=== PATIENT | female | born 1970 | race Caucasian/White ===

== ENCOUNTER 2023-09-03 11:22 | Outpatient (CLI) | payer OTHER, SELFPAY ==
--- NOTE | 2023-09-03 11:30 | CRLHL7_ITS ---
For Patients: As a result of the Century Cures Act, medical imaging exams and procedure reports are released immediately into your electronic medical record. You may view this report before your referring provider. If you have questions, please contact your health care provider. BILATERAL SCREENING MAMMOGRAM WITH COMPUTER-AIDED DETECTION AND TOMOSYNTHESIS TECHNIQUE: CC and MLO views were obtained. These mammographic images have been obtained using full-field digital technique. These mammographic images were interpreted with the benefit of computer-aided detection. Breast tomosynthesis was used in this interpretation. COMPARISON FILM: 08/09/21, 08/11/19, 05/05/18. FINDINGS: There are scattered areas of fibroglandular density. IMPRESSION: There is no radiographic evidence for malignancy. ASSESSMENT: BI-RADS Category 1: Negative RECOMMENDATION: Routine screening mammogram in 1 year. A lay language report of this examination will be provided to the patient. STACY TAVERA M.D. Diagnostic/Nuclear Medicine Radiologist [email or web address] Transcribed: 1:[address]/Dictated by: Stacy Tavera MD @ 09/04/2023 10:08:00 AM (Electronically Signed)
== END 2023-09-03 11:23 | disposition home or self-care (01) ==
LOC: MAMMO 11:23
PROVIDERS: PCP Family Medicine; Visit Provider Emergency Medicine
DX: Z12.31 Encounter for screening mammogram for malignant neoplasm of breast (principal)
CPT/HCPCS: 77063; 77067

== ENCOUNTER 2024-10-05 08:32 | Outpatient (CLI) | payer MEDICARE, OTHER, SELFPAY ==
--- NOTE | 2024-10-05 08:45 | CRLHL7_ITS ---
For Patients: As a result of the Cures Act, medical imaging exams and procedure reports are released immediately into your electronic medical record. You may view this report before your referring provider. If you have questions, please contact your health care provider. BILATERAL SCREENING MAMMOGRAM WITH COMPUTER-AIDED DETECTION AND TOMOSYNTHESIS TECHNIQUE: CC and MLO views were obtained. These mammographic images have been obtained using full-field digital technique. These mammographic images were interpreted with the benefit of computer-aided detection. Breast Tomosynthesis was used in this interpretation. COMPARISON FILM: 09/03/23, 08/09/21, 08/11/19. FINDINGS: There are scattered areas of fibroglandular density IMPRESSION: There is no radiographic evidence for malignancy. ASSESSMENT: BI-RADS Category 1: Negative RECOMMENDATION: Routine screening mammogram in 1 year. A lay language report of this examination will be provided to the patient. Arthur Chandler M.D. Diagnostic Radiologist [email or web address] Transcribed: 2:31 p.mRosie siddiqui/Dictated by: Arthur Chandler MD @ 10/06/2024 10:42:00 AM (Electronically Signed)
== END 2024-10-05 08:33 | disposition home or self-care (01) ==
LOC: MAMMO 08:33
PROVIDERS: PCP Emergency Medicine; Visit Provider Emergency Medicine
DX: Z12.31 Encounter for screening mammogram for malignant neoplasm of breast (principal)
CPT/HCPCS: 77063; 77067

== ENCOUNTER 2025-01-11 08:23 | Outpatient (CLI) | payer MEDICAID, SELFPAY ==
--- NOTE | 2025-01-11 08:45 | CRLHL7_ITS ---
For Patients: As a result of the Century Cures Act, medical imaging exams and procedure reports are released immediately into your electronic medical record. You may view this report before your referring provider. If you have questions, please contact your health care provider. DIGITAL DIAGNOSTIC LEFT MAMMOGRAM USING TOMOSYNTHESIS AND COMPUTER-AIDED DETECTION LEFT BREAST ULTRASOUND CLINICAL HISTORY: LEFT breast lump. COMPARISON: 10/05/24, 09/03/23, 08/09/21. TECHNIQUE: Digital LEFT mammogram in two projections with computer-aided detection. Tomosynthesis was used in this interpretation. Real-time ultrasound imaging of LEFT breast with imaging documentation. Scanning was performed by both the technologist and the radiologist. BREAST COMPOSITION: There are scattered areas of fibroglandular density. FINDINGS: 3D CC/MLO LEFT breast mammogram images submitted. Increased density within the subareolar breast corresponding to the area of concern. No architectural distortion. No suspicious calcifications. No adenopathy. Targeted LEFT breast ultrasound performed in the retroareolar region corresponding to the area of palpable concern. In this location, there is a hypoechoic solid-appearing structure measuring 11 x 8 x 11 millimeters. Increased through-transmission noted. A tract appears to extend to the skin. No internal vascularity. IMPRESSION: Indeterminate LEFT breast retroareolar nodule measuring 11 millimeters with a possible tract extending to the skin suggesting that this is likely chronic inflammation/granulomatous change. RECOMMENDATIONS: Ultrasound-guided core needle biopsy recommended for further evaluation and to exclude malignancy. A lay language report of this examination will be provided to the patient. BI-RADS Category 4: Suspicious Dictated by Arthur Chandler MD @ 01/11/2025 9:25:16 AM jj/Dictated by: Arthur Chandler MD @ 01/11/2025 9:25:00 AM (Electronically Signed)
== END 2025-01-11 08:24 | disposition home or self-care (01) ==
LOC: MAMMO 08:23
PROVIDERS: PCP Emergency Medicine; Visit Provider Emergency Medicine
DX: N63.20 Unspecified lump in the left breast, unspecified quadrant (principal)
CPT/HCPCS: 76642; 77065; G0279

== ENCOUNTER 2025-01-17 09:04 | Outpatient (CLI) | payer MEDICAID, SELFPAY ==
--- NOTE | 2025-01-17 09:15 | CRLHL7_ITS ---
For Patients: As a result of the Century Cures Act, medical imaging exams and procedure reports are released immediately into your electronic medical record. You may view this report before your referring provider. If you have questions, please contact your health care provider. ULTRASOUND-GUIDED BREAST BIOPSY AND POST-BIOPSY DIGITAL MAMMOGRAM FOR BIOPSY MARKER PLACEMENT CLINICAL HISTORY: Indeterminate nodule. COMPARISON STUDIES: 01/11/2025. TECHNIQUE: Real-time ultrasound with image documentation was used for targeting the breast lesion. Core biopsy specimens were obtained using an automated gun with a 16-gauge biopsy needle. Post-biopsy CC and ML digital mammograms were obtained to document position of the biopsy marker. CONSENT and TIME OUT: The procedure, risks, and alternatives were explained to the patient and a consent was signed. [place] Protocol was followed including pre-procedure verification that relevant information/documentation was available, reviewed and properly matched to the patient; consent accurate and complete; and equipment and supplies available. Time Out was conducted just prior to starting procedure to verify the four required elements: patient identity, correct side/site marked (if applicable), procedure, relevant images/results properly labeled and displayed (if applicable). PROCEDURE: The patient was positioned supine on the ultrasound table. The breast was prepped with ChloraPrep. 12 cc of 1 percent lidocaine used for local anesthesia. Core samples were obtained. A sterile metal biopsy clip was placed percutaneously to syed the lesion position within the breast. The specimens were placed in 10% formalin and sent to the pathology department. Pressure was held on the biopsy site until all bleeding subsided. The skin incision was closed with Steri-Strips. An ice pack was positioned over the biopsy site. Post-biopsy instructions were reviewed with the patient, and a written copy was given to her. LATERALITY: LEFT breast. LESION: Hypoechoic solid mass adjacent to the LEFT nipple measuring 11 x 8 x 11 millimeters. SUSPICION FOR MALIGNANCY: Intermediate. NUMBER OF SAMPLES: 6. BIOPSY CLIP SHAPE: HydroMark. PROXIMITY OF CLIP TO TARGET: Within the lesion. IMPRESSION: Ultrasound-guided breast biopsy. When the pathology report is available, an addendum to this report will be made. ACR not applicable Dictated by Arthur Chandler MD @ 01/17/2025 10:45:35 AM jj/Dictated by: Arthur Chandler MD @ 01/17/2025 10:45:00 AM (Electronically Signed)
== END 2025-01-17 09:05 | disposition home or self-care (01) ==
LOC: US 09:05
PROVIDERS: PCP Emergency Medicine; Visit Provider Emergency Medicine
DX: N63.20 Unspecified lump in the left breast, unspecified quadrant (principal); N60.82 Other benign mammary dysplasias of left breast
CPT/HCPCS: 19083; 77065; 88304; A4648; A4649

== ENCOUNTER 2025-06-06 06:18 | Day surgery (SDC) | payer BC, SELFPAY ==
[2025-06-06 06:38] VITALS: BMI 25.2
[2025-06-06 06:48] VITALS: BP 126/89; PULSE 74; RESP 19; TEMP 37; O2SAT 98
[2025-06-06] MEDS: SODIUM CHLORIDE 0.9 % (FLUSH) 10 ML SYRINGE IVF (07:10)
[2025-06-06] MEDS: LACTATED RINGERS 1000 ML 1,000 ML 100 ML IV (07:11)
--- NOTE | 2025-06-06 07:44 | CRLHL7_ITS ---
For Patients: As a result of the Cures Act, medical imaging exams and procedure reports are released immediately into your electronic medical record. You may view this report before your referring provider. If you have questions, please contact your health care provider. LEFT BREAST SPECIMEN RADIOGRAPH CLINICAL HISTORY: Epidermal inclusion cyst excision. COMPARISON: 01/17/2025. FINDINGS: Two specimens are submitted, two views of each specimen. No clip is present in either specimen. IMPRESSION: No clip is present. ACR not applicable Dictated by Arthur Chandler MD @ 06/19/2025 8:47:27 AM jj/Dictated by: Arthur Chandler MD @ 06/19/2025 8:47:00 AM (Electronically Signed)
[2025-06-06] MEDS: LIDOCAINE 1% MDV 10 ML INJECTION (07:52)
[2025-06-06] MEDS: BUPIVACAINE 0.25% 30 ML 5 ML INJECTION (07:52)
--- NOTE | 2025-06-06 07:56 | P.ANES_ITS ---
Anesthesia Charges Start Date/Time Anesthesia Start Date: 06/06/25 Anesthesia Start Time: 07:33 Stop Date/Time Anesthesia Stop Date: 06/06/25 Anesthesia Stop Time: 08:41 Coding CPT Codes CPT Codes: ANESTH SKIN EXT/PER/ATRUNK - 18602 ([id number]) P3 - PATIENT W/SEVERE SYS DISEASE, QK - TRUCK CAR AND BUS CLEANER 2-4 CNCRNT ANES PROC, QX - BORING MACHINE OPERATOR DOUBLE END SVC W/ MD MED DIRECTION
--- NOTE | 2025-06-06 07:56 | W.ANESCHARGE ---
Anesthesia Charges Start Date/Time Anesthesia Start Date: 06/06/25 Anesthesia Start Time: 07:33 Stop Date/Time Anesthesia Stop Date: 06/06/25 Anesthesia Stop Time: 08:41 Coding CPT Codes CPT Codes: ANESTH SKIN EXT/PER/ATRUNK - 84529 ([id number]) P3 - PATIENT W/SEVERE SYS DISEASE, QK - SOFTWARE PACKAGING ENGINEER 2-4 CNCRNT ANES PROC, QX - WIRE PREPARATION WORKER SVC W/ MD MED DIRECTION
--- NOTE | 2025-06-06 08:09 | SUR.OPER ---
PATIENT QUESTIONS ANSWERED SATISFACTORILY PREOPERATIVELY. PATIENT BROUGHT TO OR #1 PER CART. Patient positioned supine on OR #1 bed. The perioperative team supported arms bilaterally on arm boards. Final approval of positioning by surgeon.
--- NOTE | 2025-06-06 08:19 | CRLHL7_ITS ---
For Patients: As a result of the Cures Act, medical imaging exams and procedure reports are released immediately into your electronic medical record. You may view this report before your referring provider. If you have questions, please contact your health care provider. LEFT BREAST SPECIMEN RADIOGRAPH CLINICAL HISTORY: Epidermal inclusion cyst excision. COMPARISON: 01/17/2025. FINDINGS: A specimen is submitted which is viewed in two projections. No clip is present. IMPRESSION: No clip is present. ACR not applicable Dictated by Arthur Chandler MD @ 06/19/2025 8:48:12 AM jj/Dictated by: Arthur Chandler MD @ 06/19/2025 8:48:00 AM (Electronically Signed)
--- NOTE | 2025-06-06 08:37 | P.GSOP_ITS ---
Operative Note Date of procedure: 06/06/25 Pre-op diagnosis: Epidermal inclusion cyst of the breath Post-op diagnosis: Same Type of Procedure: Excision of left breast mass Indications: Patient is a 54-year-old female who presented with a symptomatic inclusion cyst of the left breast. Please see consultation note discussing full workup a p revious breast biopsy. Different treatment options were discussed including surgical excision verses observation. Risks and benefits of operative intervention were discussed at length with the patient. Risks included but was not limited to: Bleeding, infection, risk of damage to surrounding structures, possible need for additional procedures, risk of nipple changes, necrosis of the nipple or cosmetic defects and postoperative complications such as pneumonia, pulmonary emboli or VT. All questions and concerns were addressed with the patient agreeing to proceed. Procedure Description: After discussing the risks and benefits of the procedure, the patient signed informed consent.? The operative site was marked and the patient was brought to the operating room and placed on the operating table in supine position.? Care was taken to pad the patient's pressure points.?? The patient was then given sedation by anesthesia.?? The operative site was then prepped and draped in the usual sterile fashion.? A time-out was then performed. 1% lidocaine with 0.25% Marcaine was used to anesthetize the surgical field. A periareolar incision was made from 6-9 o'clock. Dissection was carried down through subcutaneous tissue into the breast tissue with cautery. The cyst was slightly enlarged and easily palpable. Using sharp dissection with a 15 blade scalpel it was dissected retroareolar. The cyst was entered during dissection with removal of sebum, consistent with an inclusion cyst. The cyst was removed in its entirety and sent to Radiology. There mammographies was performed, but no clip was seen. Some additional tissue was removed medial to the cyst and underneath the healed biopsy site. This was also sent to mammography and again no clip was seen. Suspect that the clip had been within the cyst cavity and was inadvertently removed when the cyst cavity was incised during dissection. No further palpable mass defects were appreciated. The incision was gently irrigated. Hemostasis was assured with cautery and pressure. The incision was closed in layers with interrupted 3 0 Vicryl and running 4-0 Monocryl stitch. Sterile dressings were then applied. ? The patient was then woken and transported to the recovery area in stable condition. ? The patient tolerated the procedure well. Findings: Sebaceous cyst, retroareolar Anesthesia: MAC and local Surgeon: Yolanda Tamayo MD Estimated blood loss (mL): 2 Additional Specimen Information: 1. Left breast mass 2. Re-excision left breast Condition: stable Disposition: same day
--- NOTE | 2025-06-06 08:37 | W.PM.H&PU ---
History & Physical Update History & Physical Update H&P Reviewed and patient assessed: No changes noted
[2025-06-06 08:38] VITALS: BP 128/97; PULSE 66; RESP 16; TEMP 36.4; O2SAT 97
--- NOTE | 2025-06-06 08:41 | P.ANES_ITS ---
Anesthesia Charges Start Date/Time Anesthesia Start Date: 06/06/25 Anesthesia Start Time: 07:33 Stop Date/Time Anesthesia Stop Date: 06/06/25 Anesthesia Stop Time: 08:41 Coding CPT Codes CPT Codes: ANESTH SKIN EXT/PER/ATRUNK - 09390 ([id number]) P3 - PATIENT W/SEVERE SYS DISEASE, QK - DEDENTER 2-4 CNCRNT ANES PROC, QX - GLAZIER HELPER SVC W/ MD MED DIRECTION
--- NOTE | 2025-06-06 08:41 | W.ANESCHARGE ---
Anesthesia Charges Start Date/Time Anesthesia Start Date: 06/06/25 Anesthesia Start Time: 07:33 Stop Date/Time Anesthesia Stop Date: 06/06/25 Anesthesia Stop Time: 08:41 Coding CPT Codes CPT Codes: ANESTH SKIN EXT/PER/ATRUNK - 07643 ([id number]) P3 - PATIENT W/SEVERE SYS DISEASE, QK - FUR OPERATOR 2-4 CNCRNT ANES PROC, QX - BRUSH HAND SVC W/ MD MED DIRECTION
[2025-06-06 08:45] VITALS: BP 134/85; PULSE 58; RESP 16; O2SAT 94
[2025-06-06 09:00] VITALS: BP 135/79; PULSE 52; RESP 18; O2SAT 100
[2025-06-06 09:15] VITALS: BP 133/78; PULSE 55; RESP 16; O2SAT 99
== END 2025-06-06 10:29 | disposition home or self-care (01) ==
PROVIDERS: PCP Nurse Practitioner Family; Visit Provider Surgery
PROC: (CPT 19120; principal; 2025-06-06 07:30)
DX: N60.82 Other benign mammary dysplasias of left breast (principal)
CPT/HCPCS: 19120; 00400; J2003; J0665; J1100; J1885; J2405; J2704; J3010; J3490; J7120

== ENCOUNTER 2025-10-05 08:30 | Outpatient (CLI) | payer BC, SELFPAY | END 2025-10-05 08:31 | disposition home or self-care (01) | PROVIDERS: PCP Nurse Practitioner Family; Visit Provider Nurse Practitioner Family | DX: I10 Essential (primary) hypertension (principal); Z13.6 Encounter for screening for cardiovascular disorders | CPT/HCPCS: 80053; 80061 ==